=== PATIENT | female | born 1990 | race African-American/Black ===

== ENCOUNTER 2016-06-30 10:05 | Emergency (ER) | payer MEDICAID ==
[~2016-06-30] VITALS: Ht 170.2 cm; Wt 76.2 kg
[2016-06-30] MEDS ORDERED: IBUPROFEN 800MG TABLET PO ONE (14:15)
[2016-06-30 15:45] VITALS: BP 120/71
== END 2016-06-30 16:01 | disposition home or self-care (01) ==
LOC: ER 14:05
DX: J02.9 Acute pharyngitis, unspecified (principal); F17.210 Nicotine dependence, cigarettes, uncomplicated
CPT/HCPCS: 81025; 99283

== ENCOUNTER 2018-09-21 18:15 | Emergency (ER) | payer MEDICAID ==
[~2018-09-21] VITALS: Ht 160 cm; Wt 68.0 kg
[2018-09-22] MEDS ORDERED: SODIUM CHLORIDE 0.9% 1,000 ML IV ONE (04:39)
[2018-09-22 05:04] LABS: CHLORIDE 112 mEq/L (98-107)
[2018-09-22 05:10] LABS: ETHANOL BLOOD < 10 mg/dL; HCG SCREEN NEGATIVE
[2018-09-22 05:17] LABS: BASOPHILS % 0.9 % (0.0-2.0); EOSINOPHILS % 6.3 % (0.0-5.0); HEMATOCRIT. 33.3 % (36.0-48.0); LYMPHOCYTES % 44.3 % (20.0-50.0); MEAN CORPUSCULAR HEMOGLOBIN 28.8 pg (28.0-32.0); MEAN CORPUSCULAR VOLUME 87.4 fL (81.0-99.0); NEUTROPHILS % 36.5 % (40.0-76.0); PLATELET 160 x1000/uL (130-400); RED BLOOD CELL COUNT 3.81 mill/uL (4.2-5.4); RED CELL DISTRIBUTION WIDTH 18.1 % (11.6-14.6)
[2018-09-22 06:31] LABS: CLARITY URINE CLEAR (CLEAR); COLOR URINE YELLOW (YELLOW); KETONES URINE NEGATIVE (NEGATIVE); LEUKOCYTE ESTERASE URINE 1+ (NEGATIVE); NITRITE URINE NEGATIVE (NEGATIVE); OCCULT BLOOD URINE NEGATIVE (NEGATIVE); PH URINE 5.5 (4.5-8.0); PROTEIN URINE NEGATIVE (NEGATIVE)
[2018-09-22 06:59] LABS: *AMPHETAMINES SCREEN URINE NEGATIVE (NEGATIVE); *BARBITURATES SCREEN URINE NEGATIVE (NEGATIVE); *BENZODIAZEPINES SCREEN URINE NEGATIVE (NEGATIVE)
[2018-09-22 07:00] LABS: *COCAINE SCREEN URINE NEGATIVE (NEGATIVE); CANNABINOID URINE SCREEN NEGATIVE (NEGATIVE); METHADONE URINE SCREEN NEGATIVE (NEGATIVE); OPIATES URINE SCREEN NEGATIVE (NEGATIVE); PHENCYCLIDINE URINE SCREEN NEGATIVE (NEGATIVE)
[2018-09-22 07:49] VITALS: BP 108/65
== END 2018-09-22 07:53 | disposition home or self-care (01) ==
LOC: ER 18:15
DX: M79.605 Pain in left leg (principal); M79.604 Pain in right leg; R06.00 Dyspnea, unspecified; F17.210 Nicotine dependence, cigarettes, uncomplicated; F15.10 Other stimulant abuse, uncomplicated
CPT/HCPCS: 36415; 71045; 80053; 80305; 80320; 81003; 81025; 84703; 85025; 93005; 99284; J7030; G0480

== ENCOUNTER 2019-02-18 20:07 | Emergency (ER) | payer MEDICAID ==
[~2019-02-18] VITALS: Ht 165.1 cm; Wt 55.0 kg
[2019-02-19 01:16] LABS: CLARITY URINE CLEAR (CLEAR); COLOR URINE YELLOW (YELLOW); KETONES URINE TRACE (NEGATIVE); LEUKOCYTE ESTERASE URINE 1+ (NEGATIVE); NITRITE URINE POSITIVE (NEGATIVE); OCCULT BLOOD URINE NEGATIVE (NEGATIVE); PROTEIN URINE NEGATIVE (NEGATIVE); SPECIFIC GRAVITY URINE 1.019 (1.005-1.030); UROBILINOGEN URINE 0.2 E.U./dL (0.2-1.0)
[2019-02-19 01:33] LABS: *BARBITURATES SCREEN URINE NEGATIVE (NEGATIVE); *BENZODIAZEPINES SCREEN URINE NEGATIVE (NEGATIVE); *COCAINE SCREEN URINE NEGATIVE (NEGATIVE)
[2019-02-19 01:35] LABS: METHADONE URINE SCREEN NEGATIVE (NEGATIVE); OPIATES URINE SCREEN NEGATIVE (NEGATIVE); PHENCYCLIDINE URINE SCREEN NEGATIVE (NEGATIVE)
[2019-02-19 01:57] LABS: *AMPHETAMINES SCREEN URINE PRESUMTIVE POSITIVE (NEGATIVE); CANNABINOID URINE SCREEN PRESUMTIVE POSITIVE (NEGATIVE)
[2019-02-19] MEDS ORDERED: CEPHALEXIN 250MG CAPSULE PO SCH (03:00)
[2019-02-19 03:59] VITALS: BP 113/47
== END 2019-02-19 04:25 | disposition home or self-care (01) ==
LOC: ER 20:07
DX: N39.0 Urinary tract infection, site not specified (principal); J45.909 Unspecified asthma, uncomplicated; F12.10 Cannabis abuse, uncomplicated; F15.10 Other stimulant abuse, uncomplicated
CPT/HCPCS: 71045; 80305; 81003; 81025; 99284

== ENCOUNTER 2020-07-18 01:10 | Emergency (ER) | payer MEDICAID, OTHER ==
[~2020-07-18] VITALS: Ht 170.2 cm; Wt 69.0 kg
[2020-07-18 02:19] LABS: CLARITY URINE TURBID (CLEAR); COLOR URINE YELLOW (YELLOW); KETONES URINE TRACE (NEGATIVE); LEUKOCYTE ESTERASE URINE 3+ (NEGATIVE); NITRITE URINE NEGATIVE (NEGATIVE); OCCULT BLOOD URINE 1+ (NEGATIVE); PROTEIN URINE TRACE (NEGATIVE); SPECIFIC GRAVITY URINE 1.019 (1.005-1.030)
[2020-07-18] MEDS ORDERED: KETOROLAC 30MG/ML VIAL IM STA (04:46)
[2020-07-18] MEDS ORDERED: ONDANSETRON HCL 4MG/2ML INJ IM STA (04:46)
[2020-07-18] MEDS ORDERED: CEFTRIAXONE SODIUM 1 G/VIAL IM ONE (05:00)
[2020-07-18] MEDS ORDERED: LIDOCAINE HCL 1% 20ML VIAL (Pyxis) INJ INFIL ONE (05:00)
[2020-07-18 05:01] VITALS: BP 99/63
[2020-07-18] MEDS ORDERED: ONDA4TAB11 PO (06:16)
[2020-07-18] MEDS ORDERED: ACET-2708 PO (06:16)
[2020-07-18] MEDS ORDERED: SULF1TAB48 MT (06:16)
== END 2020-07-18 06:39 | disposition home or self-care (01) ==
LOC: ER 01:10
DX: N39.0 Urinary tract infection, site not specified (principal); R51.9 Headache, unspecified
CPT/HCPCS: 81003; 87086; 96372; 99284; J0696; J1885; J2405; J3490